=== PATIENT | female | born 1955 | race African-American/Black ===

== ENCOUNTER 2020-08-19 18:40 | Emergency (ER) | payer OTHER ==
[~2020-08-19] VITALS: Ht 170.2 cm; Wt 61.0 kg
[2020-08-19] MEDS ORDERED: KETOROLAC 30MG/ML VIAL IM ONE (21:30)
[2020-08-19 23:08] LABS: CHLORIDE 105 mEq/L (98-107)
[2020-08-19 23:09] LABS: BASOPHILS % 1.4 % (0.0-2.0); EOSINOPHILS % 1.2 % (0.0-5.0); HEMATOCRIT. 40.3 % (36.0-48.0); HEMOGLOBIN. 13.7 g/dL (12.0-16.0); LYMPHOCYTES % 43.1 % (20.0-50.0); MEAN CORPUSCULAR HEMOGLOBIN 30.5 pg (28.0-32.0); MEAN CORPUSCULAR VOLUME 89.4 fL (81.0-99.0); MEAN PLATELET VOLUME 7.7 fl (7.4-10.4); MONOCYTES % 6.9 % (2.0-8.0); NEUTROPHILS % 47.4 % (40.0-76.0); PLATELET 284 x1000/uL (130-400); RED BLOOD CELL COUNT 4.51 mill/uL (4.2-5.4); RED CELL DISTRIBUTION WIDTH 14.6 % (11.6-14.6)
[2020-08-20] MEDS ORDERED: FAMO-135 MT (00:52)
[2020-08-20] MEDS ORDERED: IBUP-2028 MT (00:52)
[2020-08-20 01:10] VITALS: BP 122/65
== END 2020-08-20 01:20 | disposition home or self-care (01) ==
LOC: ER 18:40
DX: R10.11 Right upper quadrant pain (principal); K76.9 Liver disease, unspecified; Z91.040 Latex allergy status; Z88.5 Allergy status to narcotic agent; Z88.0 Allergy status to penicillin
CPT/HCPCS: 36415; 71045; 74176; 80053; 83690; 85025; 93005; 96372; 99285; J1885